=== PATIENT | female | born 1960 | race Caucasian/White ===

== ENCOUNTER 2017-01-15 09:27 | Emergency (ER) | payer SELFPAY ==
[~2017-01-15] VITALS: Ht 167.6 cm; Wt 65.7 kg
[~2017-01-15 09:27] MED LIST: ALBU0.086 INH; ALBU6.7H INH
[2017-01-15 09:31] VITALS: BP 124/79; PULSE 100; RESP 18; TEMP 98.5; O2SAT 95
[2017-01-15] MEDS ORDERED: ALBU6.7H INH (09:43)
[2017-01-15] MEDS ORDERED: ALBU.5I NEB (09:43)
[2017-01-15 09:53] VITALS: O2SAT 95
[2017-01-15] MEDS ORDERED: VENTAER INH (09:53)
[2017-01-15] MEDS ORDERED: PRED20 PO (09:53)
[2017-01-15] MEDS ORDERED: predniSONE 20 MG TAB PO ONE (10:00)
--- NOTE | 2017-01-15 10:02 | PD ---
HPI Chief Complaint: Respiratory Symptoms Time Seen by Provider: 09:43 Travel History International Travel<30 days: No Contact w/Intl Traveler<30days: No Traveled to known affect area: No History of Present Illness HPI The patient was seen and examined in the presence of the nurse. This patient complains of shortness of breath and wheezing. She is a smoker. She uses an albuterol inhaler as needed but ran out a few days ago. Duration is 2 days. Symptoms severity is moderate. She denies productive cough or fever or chest pain. No alleviating factors. PFSH Past Medical History Asthma: Yes Blood Disorders: No Cardiovascular Problems: No Diminished Hearing: No Endocrine: No Genitourinary: No Immune Disorder: No Musculoskeletal: No Neurologic: No Psychiatric: No ?: Not Menopausal: Yes : 2 Para: 2 Past Surgical History Other Surgery: Yes (BREAST IMPLANTS) Social History Alcohol Use: Yes (1 X WEEK) Tobacco Use: Yes Substance Use: No Allergies-Medications (Allergen,Severity, Reaction): Coded Allergies: dog dander (Unverified Allergy, Mild, unknown, 01/15/17) Reported Meds & Prescriptions Reported Meds & Active Scripts Active Ventolin Hfa 18 GM Inh (Albuterol Sulfate) 90 Mcg/Act Aer 2 Puff INH Q4H PRN Prednisone 20 Mg Tab 40 Mg PO DAILY Take 40 mg (2 tablets) daily for 5 days Reported Albuterol Neb (Albuterol Sulfate) 2.5 Mg/0.5 Ml Neb 2.5 Mg NEB Q6HR NEB Note: The Albuterol Sulfate Inhalation Solution is concentrated and must be diluted. Read complete instructions carefully before using. Proventil Hfa 6.7 GM Inh (Albuterol Sulfate) 90 Mcg/Act Aer 2 Puff INH Q4-6H PRN Review of Systems General / Constitutional: No: Fever Eyes: No: Visual changes HENT: No: Headaches Cardiovascular: No: Chest Pain or Discomfort Respiratory: Positive: Shortness of Breath, Wheezing Gastrointestinal: No: Abdominal Pain Genitourinary: No: Dysuria Musculoskeletal: No: Pain Skin: No Rash Neurologic: No: Weakness Psychiatric: No: Depression Endocrine: No: Polydipsia Hematologic/Lymphatic: No: Easy Bruising Physical Exam Narrative GENERAL: Well-nourished, well-developed patient in no apparent distress. SKIN: Focused skin assessment reveals no rash and nodules. Skin is Warm and dry. HEAD: Atraumatic. Normocephalic. EYES: Pupils equal and round. No scleral icterus. No injection or drainage. ENT: No nasal bleeding or discharge. Mucous membranes pink and moist. NECK: Trachea midline. No JVD. CARDIOVASCULAR: Regular rate and rhythm. No murmur appreciated. RESPIRATORY: No accessory muscle use. Diffuse expiratory wheezing. Breath sounds equal bilaterally but diminished. GASTROINTESTINAL: Abdomen soft, non-tender, nondistended. Hepatic and splenic margins not palpable. MUSCULOSKELETAL: No obvious deformities. No clubbing. No cyanosis. No edema. NEUROLOGICAL: Awake and alert. No obvious cranial nerve deficits. Motor grossly within normal limits. Normal speech. PSYCHIATRIC: Appropriate mood and affect; insight and judgment normal. Data Data Last Documented VS Vital Signs Date Time Temp Pulse Resp B/P Pulse Ox O2 Delivery O2 Flow Rate FiO2 01/15/17 09:53 95 01/15/17 09:31 98.5 100 18 124/79 Orders Oximetry (01/15/17 09:51) Albuterol-Ipratropium Neb (Duoneb Neb) (01/15/17 10:00) Prednisone (Deltasone) (01/15/17 10:00) MDM Medical Decision Making Medical Screen Exam Complete: Yes Emergency Medical Condition: Yes Medical Record Reviewed: Yes Differential Diagnosis COPD, asthma, bronchitis, pneumonia Narrative Course I have reviewed the patient's electronic medical record. Patient was seen here for COPD last year I gave her series of nebulizer treatments I gave her a large prednisone dose Saturations are 93% on room air prior to treatment On recheck she feels much better Wheezing is resolved then saturations are improved I prescribed her inhaler and 5 days of prednisone and encouraged her to stop smoking Diagnosis Primary Impression: COPD with acute exacerbation Additional Instructions: The patient was advised to follow up with their physician and return if they worsen. Stop smoking Med/Other Pt SpecificInfo: Prescription(s) given Scripts Albuterol 18 GM Inh (Ventolin Hfa 18 GM Inh)90 Mcg/Act Aer2 Puff INH Q4H PRN ( SHORTNESS OF BREATH) #1 INHALER Ref 0 Prov:Trent Aldana MD 01/15/17 Prednisone 20 Mg Tab40 Mg PO DAILY #10 TAB Ref 0 Take 40 mg (2 tablets) daily for 5 days Prov:Trent Aldana MD 01/15/17 Disposition: 01 DISCHARGE HOME Condition: Stable Trent Aldana MD Jan 15, 2017 10:02
[2017-01-15] MEDS: RESP: ALBUTEROL 2.5 MG/IPRATROPIUM 0.5 MG NEB (SCH) INH (10:13)
== END 2017-01-15 11:26 | disposition home or self-care (01) ==
LOC: PHED 09:27
DX: J44.1 Chronic obstructive pulmonary disease with (acute) exacerbation (principal); F17.200 Nicotine dependence, unspecified, uncomplicated
CPT/HCPCS: 94640; 94664; 99284; J7512

== ENCOUNTER 2017-05-15 16:45 | Emergency (ER) | payer SELFPAY ==
[~2017-05-15] VITALS: Ht 165.1 cm; Wt 64.5 kg
[~2017-05-15 16:45] MED LIST changes: +ALBU.5I NEB; -ALBU0.086 INH; +PRED20 PO; +VENTAER INH
[2017-05-15 16:48] VITALS: BP 134/92; PULSE 98; RESP 16; TEMP 97.8; O2SAT 94
[2017-05-15] MEDS ORDERED: SODIUM CHLOR 0.9% 1000 ML INJ 1,000 ML IV ONE (17:30)
[2017-05-15] MEDS ORDERED: PROCHLORPERAZINE INJ 10 MG/2 ML VIAL IV PUSH ONE (17:30)
[2017-05-15] MEDS ORDERED: methylPREDNISolone SOD SUCC 125 MG/2 ML VIAL IV PUSH ONE (17:30)
--- NOTE | 2017-05-15 17:31 | PD ---
HPI Chief Complaint: Respiratory Symptoms Time Seen by Provider: 17:15 Travel History International Travel<30 days: No Contact w/Intl Traveler<30days: No Traveled to known affect area: No History of Present Illness HPI 56yo F with chronic bronchitis presents to the ED with c/o sob that started about 2pm today. Said it feels like her bronchitis and she ran out of her inhaler. She was given 2 albuteral treatments by [facility] and feels better but still wants more treatments. Right before the sob, had a stabbing chest pain in midsternal region that only lasted a second and has been gone. While waiting for the ambulance, said her head started hurting, about 3pm. Said she normally does not get headaches and it is severe. It is more posterior and radiates up from the neck. Denies any focal weakness or numbness, visual changes, photophobia. Had a little nausea. +Cough. Denies any vomiting, abdominal pain. PFSH Past Medical History Asthma: Yes Blood Disorders: No Cancer: No Cardiovascular Problems: No Diminished Hearing: No Endocrine: No Genitourinary: No Immune Disorder: No Implanted Vascular Access Dvce: No Musculoskeletal: No Neurologic: No Psychiatric: No Menopausal: Yes : 2 Para: 2 Past Surgical History Other Surgery: Yes (BREAST IMPLANTS) Social History Alcohol Use: Yes (1 X WEEK) Tobacco Use: No (DENIES) Substance Use: No Allergies-Medications (Allergen,Severity, Reaction): Coded Allergies: dog dander (Unverified Allergy, Mild, unknown, 01/15/17) Reported Meds & Prescriptions Reported Meds & Active Scripts Active Proair Hfa 8.5 GM Inh (Albuterol Sulfate) 90 Mcg/Act Aer 2 Puff INH Q4-6H PRN 108 mcg/actuation Ventolin Hfa 18 GM Inh (Albuterol Sulfate) 90 Mcg/Act Aer 2 Puff INH Q4H PRN Review of Systems Except as stated in HPI: all other systems reviewed are Neg Physical Exam Narrative GENERAL: 56yo F in moderate distress. SKIN: Focused skin assessment warm/dry. HEAD: Atraumatic. Normocephalic. EYES: Pupils equal and round at 3mm bilaterally. EOMI. ENT: No nasal bleeding or discharge. Mucous membranes pink and moist. NECK: +TTP paraspinal muscles diffusely. CARDIOVASCULAR: Regular rate and rhythm. No murmur appreciated. RESPIRATORY: No accessory muscle use. End inspiratory wheezing. GASTROINTESTINAL: Abdomen soft, non-tender, nondistended. MUSCULOSKELETAL: No obvious deformities. No clubbing. No cyanosis. No edema. NEUROLOGICAL: Awake and alert. No obvious cranial nerve deficits. Motor grossly within normal limits. Normal speech. PSYCHIATRIC: Appropriate mood and affect; insight and judgment normal. Data Data Last Documented VS Vital Signs Date Time Temp Pulse Resp B/P (MAP) Pulse Ox O2 Delivery O2 Flow Rate FiO2 05/15/17 21:15 125/77 (93) 05/15/17 19:25 114 16 98 Room Air 05/15/17 16:[address] Brain W/O Iv Contrast(Rout) (05/15/17 ) Complete Blood Count With Diff (05/15/17 17:25) Basic Metabolic Panel (Bmp) (05/15/17 17:25) Troponin I (05/15/17 17:25) Chest, Single Ap (05/15/17 17:25) Methylprednisolone So Succ Inj (Solumedr (05/15/17 17:30) Albuterol-Ipratropium Neb (Duoneb Neb) (05/15/17 17:30) Prochlorperazine Inj (Compazine Inj) (05/15/17 17:30) Sodium Chlor 0.9% 1000 Ml Inj (Ns 1000 M (05/15/17 17:30) Ed Discharge Order (05/15/17 21:05) Labs Laboratory Tests Test 05/15/17 17:38 White Blood Count 6.9 TH/MM3 Red Blood Count 4.50 MIL/MM3 Hemoglobin 12.7 GM/DL Hematocrit 38.5 % Mean Corpuscular Volume 85.4 FL Mean Corpuscular Hemoglobin 28.2 PG Mean Corpuscular Hemoglobin Concent 33.1 % Red Cell Distribution Width 12.9 % Platelet Count 221 TH/MM3 Mean Platelet Volume 8.2 FL Neutrophils (%) (Auto) 65.1 % Lymphocytes (%) (Auto) 20.3 % Monocytes (%) (Auto) 6.2 % Eosinophils (%) (Auto) 7.8 % Basophils (%) (Auto) 0.6 % Neutrophils # (Auto) 4.6 TH/MM3 Lymphocytes # (Auto) 1.4 TH/MM3 Monocytes # (Auto) 0.4 TH/MM3 Eosinophils # (Auto) 0.5 TH/MM3 Basophils # (Auto) 0.0 TH/MM3 CBC Comment DIFF FINAL Differential Comment Blood Urea Nitrogen 22 MG/DL Creatinine 1.10 MG/DL Random Glucose 96 MG/DL Calcium Level 8.8 MG/DL Sodium Level 141 MEQ/L Potassium Level 4.0 MEQ/L Chloride Level 108 MEQ/L Carbon Dioxide Level 26.0 MEQ/L Anion Gap 7 MEQ/L Estimat Glomerular Filtration Rate 51 ML/MIN Troponin I LESS THAN 0.02 NG/ML MDM Medical Decision Making Medical Screen Exam Complete: Yes Emergency Medical Condition: Yes Differential Diagnosis COPD exacerbation vs. pneumonia vs. SAH vs. tension headache vs. migraine headache Narrative Course 56yo F with 2 different complaints. Pt here with sob and wheezing, feels like her chronic bronchitis. Will give methylprednisolone 125mg IV and duonebs x3. Labs reviewed, no leukocytosis. Troponin negative. Chest pain is very atypical and thinks it is more her COPD. CXR negative. Pt reevaluated at bedside and said her breathing has improved and no longer sob. O2 sat 97% on RA. Said compazine helped with the headache from 10 to 5. Pt came in with occipital headache that started 3pm today. States she usually never gets headache so was concern about possible subarachnoid hemorrhage. Pt denies any family history of brain aneurysm. Since onset of headache is less than 6 hours , CT brain should be 100% sensitive for SAH. CT brain pending. Will give toradol if negative. Sign out to next team to follow up with CT brain and reevaluate. Diagnosis Primary Impression: COPD with acute exacerbation Scripts Albuterol 8.5 GM Inh (Proair Hfa 8.5 GM Inh) 90 Mcg/Act Aer 2 PUFF INH Q4-6H Y for SHORTNESS OF BREATH, #1 INHALER 0 Refills 108 mcg/actuation Prov: Joni Robins MD 05/15/17 Sonam Pritchett DO May 15, 2017 17:31
[2017-05-15] MEDS: RESP: ALBUTEROL 2.5 MG/IPRATROPIUM 0.5 MG NEB (SCH) INH ×2 (17:37→17:38)
[2017-05-15 17:45] LABS: AUTOMATED NEUTROPHIL # 4.6 TH/MM3 (1.8-7.7); BASOPHIL % 0.6 % (0.0-2.0); EOSINOPHIL # 0.5 TH/MM3 (0-0.4); EOSINOPHIL % 7.8 % (0.0-4.0); HEMATOCRIT 38.5 % (35.0-46.0); HEMOGLOBIN 12.7 GM/DL (11.6-15.3); LYMPH % 20.3 % (9.0-44.0); LYMPHOCYTE # 1.4 TH/MM3 (1.0-4.8); MEAN CELL VOLUME 85.4 FL (80.0-100.0); MEAN CORPUSCULAR HEMOGLOBIN 28.2 PG (27.0-34.0); MEAN CORPUSCULAR HGB CONC 33.1 % (32.0-36.0); MEAN PLATELET VOLUME 8.2 FL (7.0-11.0); MONO % 6.2 % (0.0-8.0); MONOCYTE # 0.4 TH/MM3 (0-0.9); NEUT % 65.1 % (16.0-70.0); PLATELET COUNT 221 TH/MM3 (150-450); RED CELL DISTRIBUTION WIDTH 12.9 % (11.6-17.2); WHITE BLOOD COUNT 6.9 TH/MM3 (4.0-11.0)
[2017-05-15 17:56] LABS: CHLORIDE 108 MEQ/L (98-107); SODIUM (NA) 141 MEQ/L (136-145)
[2017-05-15 17:58] LABS: CALCIUM 8.8 MG/DL (8.5-10.1)
[2017-05-15 17:59] LABS: BLOOD UREA NITROGEN 22 MG/DL (7-18); GLUCOSE,RANDOM 96 MG/DL (74-106)
[2017-05-15 18:02] LABS: GLOMERULAR FILTRATION RATE 51 ML/MIN (>89)
--- NOTE | 2017-05-15 18:03 | RADRPT ---
EXAM DATE/TIME: 05/15/2017 17:40 [facility] COMPARISON: No previous studies available for comparison. INDICATIONS : Shortness of breath. MEDICAL HISTORY : None. SURGICAL HISTORY : None. ENCOUNTER: Initial ACUITY: 1 day PAIN SCORE: 0/10 LOCATION: Bilateral chest FINDINGS: A single view of the chest demonstrates the lungs to be symmetrically aerated without evidence of mas s, infiltrate or effusion. There is hyperaeration bilaterally. The cardiomediastinal contours are un remarkable. Osseous structures are intact. CONCLUSION: No acute disease. Fletcher Wang MD on May 15, 2017 at 18:00 Board Certified Radiologist. This report was verified electronically.
[2017-05-15 18:07] LABS: TROPONIN I LESS THAN 0.02 NG/ML (0.02-0.05)
[2017-05-15 18:38] VITALS: BP 139/80; PULSE 118; RESP 18; O2SAT 95
[2017-05-15 19:25] VITALS: BP 125/77; PULSE 114; RESP 16; O2SAT 98
--- NOTE | 2017-05-15 20:57 | PD ---
Physical Exam Time Seen by Provider: 20:[address] Pritchett with this patient with me to check the results of the CT of the head and make disposition, likely discharge. Data Data Last Documented VS Vital Signs Date Time Temp Pulse Resp B/P (MAP) Pulse Ox O2 Delivery O2 Flow Rate FiO2 05/15/17 19:25 114 16 125/77 (93) 98 Room Air 05/15/17 16:[address] Brain W/O Iv Contrast(Rout) (05/15/17 ) Complete Blood Count With Diff (05/15/17 17:25) Basic Metabolic Panel (Bmp) (05/15/17 17:25) Troponin I (05/15/17 17:25) Chest, Single Ap (05/15/17 17:25) Methylprednisolone So Succ Inj (Solumedr (05/15/17 17:30) Albuterol-Ipratropium Neb (Duoneb Neb) (05/15/17 17:30) Prochlorperazine Inj (Compazine Inj) (05/15/17 17:30) Sodium Chlor 0.9% 1000 Ml Inj (Ns 1000 M (05/15/17 17:30) Labs Laboratory Tests Test 05/15/17 17:38 White Blood Count 6.9 TH/MM3 Red Blood Count 4.50 MIL/MM3 Hemoglobin 12.7 GM/DL Hematocrit 38.5 % Mean Corpuscular Volume 85.4 FL Mean Corpuscular Hemoglobin 28.2 PG Mean Corpuscular Hemoglobin Concent 33.1 % Red Cell Distribution Width 12.9 % Platelet Count 221 TH/MM3 Mean Platelet Volume 8.2 FL Neutrophils (%) (Auto) 65.1 % Lymphocytes (%) (Auto) 20.3 % Monocytes (%) (Auto) 6.2 % Eosinophils (%) (Auto) 7.8 % Basophils (%) (Auto) 0.6 % Neutrophils # (Auto) 4.6 TH/MM3 Lymphocytes # (Auto) 1.4 TH/MM3 Monocytes # (Auto) 0.4 TH/MM3 Eosinophils # (Auto) 0.5 TH/MM3 Basophils # (Auto) 0.0 TH/MM3 CBC Comment DIFF FINAL Differential Comment Blood Urea Nitrogen 22 MG/DL Creatinine 1.10 MG/DL Random Glucose 96 MG/DL Calcium Level 8.8 MG/DL Sodium Level 141 MEQ/L Potassium Level 4.0 MEQ/L Chloride Level 108 MEQ/L Carbon Dioxide Level 26.0 MEQ/L Anion Gap 7 MEQ/L Estimat Glomerular Filtration Rate 51 ML/MIN Troponin I LESS THAN 0.02 NG/ML [facility] Medical Record Reviewed: Yes Supervised Visit with MARISOL: No Interpretation(s) The chest x-ray shows no acute disease and the CT head shows no acute findings, probable small subcentimeter calcified meningioma in the posterior falx. Differential Diagnosis Migraine headache, tension headache, cluster headache, normal pressure hydrocephalus-unlikely, intracranial bleed-eyelid and likely, pneumonia, bronchiolitis, bronchospasm Narrative Course It is now 9 PM and the patient's headache has resolved and she wants to go home. Her shortness of breath has resolved. Impression: Bronchitis with bronchospasm and migraine headache. Diagnosis Primary Impression: COPD with acute exacerbation Additional Impression: Migraine headache Disposition: 01 DISCHARGE HOME Condition: Stable Joni Robins MD May 15, 2017 20:57
[2017-05-15 21:15] VITALS: BP 125/77
[2017-05-15] MEDS ORDERED: ALBUAER3 INH (21:21)
--- NOTE | 2017-05-18 08:33 | RADRPT ---
EXAM DATE/TIME: 05/15/2017 18:04 [facility] COMPARISON: No previous studies available for comparison. INDICATIONS : Posterior headache and shortness of breath. RADIATION DOSE: 55.73 CTDIvol (mGy) MEDICAL HISTORY : asthma SURGICAL HISTORY : None. ENCOUNTER: Initial ACUITY: 1 day PAIN SCALE: 10/10 LOCATION: cranial TECHNIQUE: Multiple contiguous axial images were obtained of the head. Using automated exposure control and adj ustment of the mA and/or kV according to patient size, radiation dose was kept as low as reasonably a chievable to obtain optimal diagnostic quality images. DICOM format image data is available electro nically for review and comparison. FINDINGS: CEREBRUM: The ventricles are normal for age. No evidence of midline shift, mass lesion, hemorrhage or acute in farction. No extra-axial fluid collections are seen. POSTERIOR FOSSA: The cerebellum and brainstem are intact. The 4th ventricle is midline. The cerebellopontine angle i s unremarkable. EXTRACRANIAL: The visualized portion of the orbits is intact. SKULL: The calvaria is intact. No evidence of skull fracture. CONCLUSION: 1. No acute findings. Probable small subcentimeter calcified meningioma in the posterior falx. Quirino Lei MD on May 15, 2017 at 18:54 Board Certified Radiologist. This report was verified electronically.
== END 2017-05-15 21:25 | disposition home or self-care (01) ==
LOC: PHED 16:45
DX: J44.1 Chronic obstructive pulmonary disease with (acute) exacerbation (principal); G43.909 Migraine, unspecified, not intractable, without status migrainosus
CPT/HCPCS: 70450; 71010; 80048; 84484; 85025; 94640; 94664; 96361; 96374; 96375; 99285; J0780; J2930; J7030